=== PATIENT | male | born 1965 | race Two or more races ===

== ENCOUNTER 2021-12-09 09:24 | Emergency (ER) | payer OTHER ==
[~2021-12-09] VITALS: Ht 177.8 cm; Wt 97.5 kg
== END 2021-12-09 12:03 | disposition home or self-care (01) ==
LOC: ER 09:24
DX: N39.0 Urinary tract infection, site not specified (principal)

== ENCOUNTER 2025-07-27 17:25 | Inpatient (IN) | payer OTHER ==
[~2025-07-27] VITALS: Ht 177.8 cm; Wt 88.5 kg
[2025-07-27] MEDS ORDERED: ONDANSETRON HCL 2 MG/ML VIAL IV ONE (19:00)
[2025-07-27] MEDS ORDERED: MORPHINE SULFATE 4 MG/ML CARTRIDGE IV ONE (19:00)
[2025-07-27] MEDS ORDERED: 0.9 % SODIUM CHLORIDE 1,000 ML IV SCH (19:00)
[2025-07-27] MEDS ORDERED: FAMOTIDINE/PF 20 MG in 0.9 % SODIUM CHLORIDE 8 ML IV PUSH ONE (19:00)
[2025-07-27] MEDS ORDERED: ONDANSETRON HCL 2 MG/ML VIAL ONE (20:41)
[2025-07-27] MEDS ORDERED: FAMOTIDINE/PF 20 MG/2 ML VIAL ONE (20:41)
--- NOTE | 2025-07-27 21:42 | NUR ---
PTE EVALUADO POR DR. MELVIN , SE [facility] DE [facility] BAJO MEDIDAS ASEPTICAS Y SE ADMINISTRAN MEICAMENTOS CHRIS ORDEN MEDICA. SE NAEEM BP PREVIO MEDICACION PARA EL DOLOR BP 170/100. CLIENTE ES ORIENTADO SOBRE PROCEDIMIENTOS REALIZADOS Y PROCESO DE RE-EVALUACION MEDICA.
[2025-07-27 21:51] LABS: INR 1.08
[2025-07-27 22:03] LABS: ALT/SGPT 166.0 U/L (12-78); AST/SGOT 191.0 U/L (15-37); BILIRUBIN TOTAL 3.33 mg/dL (0.3-1.2); BUN CREA RATIO 11.0 (7.0-25.0); CREATININE SERUM 1.0 mg/dL (0.70-1.30); GFR 76.75; GLOBULINA 4.1 G/DL (2.4-3.5); GLUCOSE FASTING 155.0 mg/dL (65-100); OSMOLALITY SERUM 280.0 MOSM/KG (275-295)
[2025-07-27 22:11] LABS: BASO % 0.2 % (0.1-1.2); EOS # 0.00 (0.04-0.54); EOS % 0.0 % (0.7-7.0); LYMPH # 0.62 (1.18-3.74); LYMPH % 4.7 % (19.3-53.1); MEAN PLATELET VOLUME 9.90 fl (9.4-12.4); MONO # 0.86 (0.24-0.82); MONO % 6.5 % (4.7-12.5); NEUT # 11.59 (1.56-6.13); NEUT % 88.1 % (34.0-71.1); RED CELL DISTRIBUTION WIDTH 11.5 % (11.6-14.4)
[2025-07-27] MEDS ORDERED: CEFTRIAXONE SODIUM 2,000 MG in 0.9 % SODIUM CHLORIDE 100 ML IV SCH (22:16)
[2025-07-27] MEDS ORDERED: MORPHINE SULFATE 4 MG/ML CARTRIDGE IV PRN (22:30)
[2025-07-27] MEDS ORDERED: KETOROLAC TROMETHAMINE 30 MG VIAL IV PRN (22:30)
[2025-07-27] MEDS ORDERED: ONDANSETRON HCL 4 MG in 0.9 % SODIUM CHLORIDE 50 ML IV PRN (22:30)
[2025-07-27] MEDS ORDERED: ACETAMINOPHEN 325 MG TABLET PO PRN (22:30)
[2025-07-28 01:49] VITALS: BP 147/79; O2SAT 96
[2025-07-28 02:22] LABS: COVID-19 AG NEGATIVE (NEGATIVE)
[2025-07-28 02:26] VITALS: BP 129/74; O2SAT 98
[2025-07-28 08:52] LABS: URINE APPEARANCE Clear; URINE BILIRRUBIN Small (NEGATIVE); URINE BLOOD Negative; URINE COLOR Dark Yellow; URINE GLUCOSE Negative (NEGATIVE); URINE KETONE 15 (NEGATIVE); URINE LEUKOCYTE Trace; URINE NITRATE Negative; URINE PROTEIN 30 (NEGATIVE); URINE UROBILINOGEN 1.0 E.U./dl
[2025-07-28 08:58] VITALS: BP 167/91; O2SAT 97
[2025-07-28 08:58] LABS: URINE EPITHELIAL CELLS 2.3 uL (0.0-38.8); URINE RBC 8.2 uL (0.0-20.8); URINE WBC 2.9 uL (0.0-23.2)
[2025-07-28 09:05] LABS: URINE BACTERIA 2.3 uL (0.0-1933); URINE CAST 0.00 uL (0.0-1.40)
[2025-07-28] MEDS ORDERED: ENALAPRILAT DIHYDRATE 1.25 MG/ML VIAL IV NR (09:30)
[2025-07-28] MEDS ORDERED: ENALAPRILAT DIHYDRATE 1.25 MG/ML VIAL IV PRN (14:45)
[2025-07-28] MEDS ORDERED: ACETAMINOPHEN 500 MG GEL..CAP PO PRN (14:45)
[2025-07-28 16:07] VITALS: BP 143/79; O2SAT 97
[2025-07-28] MEDS ORDERED: PANTOPRAZOLE SODIUM 40 MG/VIAL VIAL IV SCH (21:00)
[2025-07-29 01:44] VITALS: BP 101/57; O2SAT 100
[2025-07-29] MEDS ORDERED: ENOXAPARIN SODIUM 40 MG/0.4 ML SYRINGE SUBCUTANEO SCH (09:00)
[2025-07-29 09:54] VITALS: BP 133/73; O2SAT 96
[2025-07-29 15:05] LABS: ALT/SGPT 385.0 U/L (12-78); AST/SGOT 154.0 U/L (15-37); BILIRUBIN TOTAL 3.93 mg/dL (0.3-1.2); BUN CREA RATIO 14.0 (7.0-25.0); CREATININE SERUM 0.72 mg/dL (0.70-1.30); GFR 112.12; GLOBULINA 3.0 G/DL (2.4-3.5); GLUCOSE FASTING 104.0 mg/dL (65-100); OSMOLALITY SERUM 277.0 MOSM/KG (275-295)
[2025-07-29 16:12] LABS: BASO % 0.6 % (0.1-1.2); EOS # 0.03 (0.04-0.54); EOS % 0.5 % (0.7-7.0); LYMPH # 1.04 (1.18-3.74); LYMPH % 15.9 % (19.3-53.1); MEAN PLATELET VOLUME 10.10 fl (9.4-12.4); MONO # 0.65 (0.24-0.82); MONO % 9.9 % (4.7-12.5); NEUT # 4.77 (1.56-6.13); NEUT % 72.6 % (34.0-71.1); RED CELL DISTRIBUTION WIDTH 11.2 % (11.6-14.4)
== END 2025-07-29 18:04 | disposition home or self-care (01) | DRG 445 ==
LOC: ER 17:26 → SURH 22:36
PROVIDERS: General Practice; ADMIT Student in an Organized Health Care Education/Training Program; ATTEND Student in an Organized Health Care Education/Training Program
PROC: BW40ZZZ Ultrasonography of Abdomen (ICD-10-PCS; principal; 2025-07-27)
PROC: BF37ZZZ Magnetic Resonance Imaging (MRI) of Pancreas (ICD-10-PCS; 2025-07-27)
DX: K80.50 Calculus of bile duct without cholangitis or cholecystitis without obstruction (principal); R17 Unspecified jaundice; I10 Essential (primary) hypertension

== ENCOUNTER 2025-09-02 11:00 | Inpatient (IN) | payer OTHER ==
[2025-08-25 10:16] VITALS: BP 120/77
[2025-08-25 11:41] LABS: BASO % 1.6 % (0.1-1.2); EOS # 0.19 (0.04-0.54); EOS % 3.8 % (0.7-7.0); LYMPH # 1.95 (1.18-3.74); LYMPH % 39.2 % (19.3-53.1); MEAN PLATELET VOLUME 10.00 fl (9.4-12.4); MONO # 0.51 (0.24-0.82); MONO % 10.3 % (4.7-12.5); NEUT # 2.23 (1.56-6.13); NEUT % 44.9 % (34.0-71.1); RED CELL DISTRIBUTION WIDTH 11.5 % (11.6-14.4)
[2025-08-25 11:41] LABS: URINE APPEARANCE Clear; URINE BILIRRUBIN Negative (NEGATIVE); URINE BLOOD Negative; URINE COLOR Dark Yellow; URINE GLUCOSE Negative (NEGATIVE); URINE KETONE Trace (NEGATIVE); URINE LEUKOCYTE Trace; URINE NITRATE Negative; URINE PROTEIN Negative (NEGATIVE); URINE UROBILINOGEN 1.0 E.U./dl
[2025-08-25 11:44] LABS: URINE RBC 3.0 uL (0.0-20.8); URINE WBC 3.6 uL (0.0-23.2)
[2025-08-25 11:48] LABS: URINE BACTERIA 0 uL (0.0-1933); URINE CAST 0.29 uL (0.0-1.40); URINE EPITHELIAL CELLS 0.6 uL (0.0-38.8)
[2025-08-25 12:04] LABS: ALT/SGPT 93.0 U/L (12-78); AST/SGOT 16.0 U/L (15-37); BILIRUBIN TOTAL 1.29 mg/dL (0.3-1.2); BUN CREA RATIO 12.0 (7.0-25.0); CREATININE SERUM 0.85 mg/dL (0.70-1.30); GFR 92.26; GLOBULINA 3.4 G/DL (2.4-3.5); GLUCOSE FASTING 97.0 mg/dL (65-100); INR 1.04; OSMOLALITY SERUM 282.0 MOSM/KG (275-295)
[~2025-09-02] VITALS: Ht 177.8 cm; Wt 88.5 kg
[~2025-09-02 11:00] MED LIST: LIPITOR20 MG PO; SINGULAIR10 MG PO
[2025-09-02] MEDS ORDERED: CEFAZOLIN SODIUM 1,000 MG VIAL ONE (12:19)
[2025-09-02] MEDS ORDERED: LIDOCAINE HCL 1% 10ML VIAL ONE (12:40)
[2025-09-02] MEDS ORDERED: ONDANSETRON HCL 2 MG/ML VIAL ONE (15:32)
[2025-09-02] MEDS ORDERED: ONDANSETRON HCL 2 MG/ML VIAL IV ONE (15:45)
[2025-09-02] MEDS ORDERED: ACETAMINOPHEN 650 MG SUPP.RECT RECTAL SCH (17:00)
[2025-09-02] MEDS ORDERED: ENOXAPARIN SODIUM 40 MG/0.4 ML SYRINGE SUBCUTANEO SCH (21:00)
[2025-09-02 23:01] VITALS: BP 115/66; O2SAT 97
[2025-09-03] MEDS ORDERED: ACETAMINOPHEN 325 MG TABLET PO SCH (01:00)
[2025-09-03 03:22] VITALS: BP 120/74; O2SAT 98
[2025-09-03 06:27] LABS: BASO % 0.4 % (0.1-1.2); EOS # 0.01 (0.04-0.54); EOS % 0.1 % (0.7-7.0); LYMPH # 1.49 (1.18-3.74); LYMPH % 13.3 % (19.3-53.1); MEAN PLATELET VOLUME 10.90 fl (9.4-12.4); MONO # 0.87 (0.24-0.82); MONO % 7.8 % (4.7-12.5); NEUT # 8.74 (1.56-6.13); NEUT % 78.0 % (34.0-71.1); RED CELL DISTRIBUTION WIDTH 11.4 % (11.6-14.4)
[2025-09-03 06:56] LABS: BILIRUBIN TOTAL 1.82 mg/dL (0.3-1.2); BILIRUBIN,CONJUGATED 0.42 mg/dL (0.0-0.2)
[2025-09-03] MEDS ORDERED: ACETAMINOPHEN 500 MG GEL..CAP PO SCH (09:00)
[2025-09-03 10:36] VITALS: BP 120/70; O2SAT 97
== END 2025-09-03 15:01 | disposition home or self-care (01) | DRG 419 ==
LOC: CIR.AMB 11:00 → O/R 16:06 → MEDJ 16:28 → MEDI 09-03 14:20 → MEDJ 09-03 14:21
PROVIDERS: ADMIT Student in an Organized Health Care Education/Training Program; ATTEND Student in an Organized Health Care Education/Training Program
PROC: 0FT44ZZ Resection of Gallbladder, Percutaneous Endoscopic Approach (ICD-10-PCS; principal; 2025-09-02 08:15)
DX: K80.10 Calculus of gallbladder with chronic cholecystitis without obstruction (principal)